=== PATIENT | female | born 2000 | race Caucasian/White ===

== ENCOUNTER 2024-10-07 20:20 | Emergency (ER) | payer MEDICAID ==
[~2024-10-07] VITALS: Ht 157.5 cm; Wt 70.0 kg
[2024-10-07 20:31] VITALS: TEMP 36.6; O2SAT 96
[2024-10-07 21:08] LABS: BASOPHILS % 0.2 % (0.0-2.0); EOSINOPHILS % 0.8 % (0.0-5.0); HEMATOCRIT. 32.5 % (36.0-48.0); HEMOGLOBIN. 11.1 g/dL (12.0-16.0); LYMPHOCYTES % 14.7 % (20.0-50.0); MEAN CORPUSCULAR HEMOGLOBIN 30.9 pg (28.0-32.0); MEAN CORPUSCULAR HGB CONC 34.2 g/dL (31.0-37.0); MEAN CORPUSCULAR VOLUME 90.6 fL (81.0-99.0); MEAN PLATELET VOLUME 8.2 fl (7.4-10.4); MONOCYTES % 6.9 % (2.0-8.0); NEUTROPHILS % 77.4 % (40.0-76.0); PLATELET 197 x1000/uL (130-400); RED BLOOD CELL COUNT 3.58 mill/uL (4.2-5.4); RED CELL DISTRIBUTION WIDTH 14.4 % (11.6-14.6); WHITE BLOOD COUNT 11.4 x1000/uL (4.5-11.0)
[2024-10-07 21:14] LABS: CARBON DIOXIDE 22 mEq/L (21-32); CHLORIDE 103 mEq/L (98-107); POTASSIUM 4.1 mEq/L (3.5-5.1); SODIUM 135 mEq/L (136-145)
[2024-10-07 21:18] LABS: PROTHROMBIN TIME 10.6 sec (9.6-11.0)
[2024-10-07 21:19] LABS: CLARITY URINE CLEAR (CLEAR); COLOR URINE YELLOW (YELLOW); GLUCOSE URINE NEGATIVE (NEGATIVE); KETONES URINE NEGATIVE (NEGATIVE); LEUKOCYTE ESTERASE URINE 2+ (NEGATIVE); NITRITE URINE NEGATIVE (NEGATIVE); OCCULT BLOOD URINE TRACE (NEGATIVE); PROTEIN URINE TRACE (NEGATIVE); SPECIFIC GRAVITY URINE 1.024 (1.005-1.030)
[2024-10-07 21:19] LABS: CREATININE 0.6 mg/dL (0.6-1.0)
[2024-10-07 21:20] LABS: GLUCOSE 97 mg/dL (70-105); UREA NITROGEN BLOOD 9 mg/dL (9-23)
[2024-10-07 21:29] LABS: BACTERIA URINE 1+; RBC URINE 0-2 /hpf (0-2); SQUAMOUS EPITHELIAL CELL URINE 1+ /lpf (RARE/1+)
[2024-10-07 22:07] LABS: B-HCG QUANTITATIVE 2628 mIU/mL (<6)
[2024-10-07] MEDS: CEFTRIAXONE 1GM/50ML 50 ML IV ONE (22:25)
[2024-10-07 23:30] VITALS: BP 128/71; PULSE 107; RESP 15; O2SAT 99
== END 2024-10-07 23:56 | disposition short-term general hospital (02) ==
LOC: ER 20:20 → EDBEDREQ 22:12 → ER 23:56
DX: O23.43 Unspecified infection of urinary tract in pregnancy, third trimester (principal); N39.0 Urinary tract infection, site not specified; Z3A.34 34 weeks gestation of pregnancy
CPT/HCPCS: 99291; 96365; 76805; 80048; 81003; 84702; 85025; 85610; 86850; 86900; 86901; 36415; J0696